=== PATIENT | female | born 1950 | race Caucasian/White ===

== ENCOUNTER → 2017-08-31 | Outpatient (CLI) | payer OTHER, MEDICARE ==
[~2017-08-31] MED LIST: AUGMENTIN 875875 M1; CARAFATE 1 GM TA1 G1 PO; ESTRACE1 MG; HYDROCODONE-AP1 EAC6 PO; PAXIL10 MG; PROTONIX40 M1; ZETIA10 MG; ZOFRAN 4 MG ORAL4 M1 DIS
== END ==
LOC: M.ULTRA 14:45
DX: N60.01 Solitary cyst of right breast (principal)

== ENCOUNTER → 2017-10-20 | Outpatient (CLI) | payer OTHER, MEDICARE | LOC: M.RAD 08:47 | DX: Z12.31 Encounter for screening mammogram for malignant neoplasm of breast (principal) ==

== ENCOUNTER → 2019-08-29 | Outpatient (CLI) | payer OTHER, MEDICARE | LOC: M.RAD 11:09 | DX: Z12.31 Encounter for screening mammogram for malignant neoplasm of breast (principal) ==